=== PATIENT | female | born 1935 | race Caucasian/White ===

== ENCOUNTER 2022-09-10 10:51 | Outpatient (CLI) | payer MEDICARE, OTHER ==
[2022-09-10] MEDS ORDERED: Iopamidol 370 76% 100 ML VIAL ONE (14:33)
== END 2022-09-10 10:52 | disposition home or self-care (01) ==
LOC: NM 10:51
PROVIDERS: ATTEND Internal Medicine Hematology & Oncology
DX: C50.111 Malignant neoplasm of central portion of right female breast (principal); G95.89 Other specified diseases of spinal cord; I70.0 Atherosclerosis of aorta; N63.10 Unspecified lump in the right breast, unspecified quadrant; E07.89 Other specified disorders of thyroid; M79.9 Soft tissue disorder, unspecified; N28.89 Other specified disorders of kidney and ureter; I70.90 Unspecified atherosclerosis; K44.9 Diaphragmatic hernia without obstruction or gangrene; K57.30 Diverticulosis of large intestine without perforation or abscess without bleeding; S32.049A Unspecified fracture of fourth lumbar vertebra, initial encounter for closed fracture; D17.71 Benign lipomatous neoplasm of kidney; Z98.890 Other specified postprocedural states
CPT/HCPCS: 71260; 74177; 78306; A9503; Q9967

== ENCOUNTER 2022-11-08 10:22 | Outpatient (CLI) | payer MEDICARE | END 2022-11-08 10:23 | disposition home or self-care (01) | LOC: BICMAMMO 10:22 | PROVIDERS: ATTEND Internal Medicine Hematology & Oncology | DX: Z13.820 Encounter for screening for osteoporosis (principal); N95.9 Unspecified menopausal and perimenopausal disorder; C50.111 Malignant neoplasm of central portion of right female breast; M81.0 Age-related osteoporosis without current pathological fracture | CPT/HCPCS: 77080 ==

== ENCOUNTER 2023-09-19 22:15 | Inpatient (IN) | payer MEDICARE, OTHER ==
[~2023-09-19 22:15] MED LIST: Iopamidol-370 76% 500 ML MDV (1 ML CHARGE) ONE
[2023-09-19] MEDS ORDERED: Lisinopril 10 MG TAB ONE (23:13)
[2023-09-19] MEDS ORDERED: Ketorolac Tromethamine 30 MG/ML VIAL ONE (23:13)
[2023-09-19 23:46] LABS: #Monocytes 0.3 thou/uL (0.11-0.59); #Neutrophils 7.6 thou/uL (1.40-6.50); %Basophils 0.3 % (0.0-1.0); %Eosinophils 0.2 % (0.0-10.0); %Lymphocytes 12.3 % (21.0-51.0); %Monocytes 3.4 % (0.0-10.0); %Neutrophils 83.1 % (42.0-75.0); Hematocrit 36.6 % (36.0-47.0); Hemoglobin 12.8 g/dL (12.0-16.0); Mean Corpuscular Hemoglobin 35.6 pg (27.0-31.0); Mean Corpuscular Volume 101.7 fl (78.0-98.0); Mean Platelet Volume 8.6 fL (7.4-10.4); Platelet Count 222 10x3/uL (130-400); White Blood Cell (WBC) Count 9.1 10x3/uL (4.8-10.8)
[2023-09-20 00:09] LABS: ALT (SGPT) 17 U/L (8-55); AST (SGOT) 19 U/L (5-34); Albumin 4.1 g/dL (3.4-4.8); Alkaline Phosphatase 121 U/L (40-110); Anion Gap 15 mmol/L (10-20); BUN (Urea Nitrogen) 13 mg/dL (9.8-20.1); Bilirubin, Total 0.6 mg/dL (0.2-1.2); Calc. Creatinine Clearance 0 mL/min (70-130); Calcium 9.1 mg/dL (7.8-10.44); Carbon Dioxide 24 mmol/L (23-31); Chloride 95 mmol/L (98-107); Estimated GFR 67; Globulin 2.7 g/dL (2.4-3.5); Glucose 165 mg/dL (83-110); Lipase 9 U/L (8-78); Potassium 3.5 mmol/L (3.5-5.1); Protein, Total 6.8 g/dL (5.8-8.1); Sodium 130 mmol/L (136-145)
[2023-09-20 00:12] LABS: Troponin I Less than 0.010 ng/mL (< 0.028)
[2023-09-20] MEDS ORDERED: Ondansetron PF 4 MG/2 ML Vial IVP PRN (02:59)
[2023-09-20] MEDS ORDERED: Sodium Chloride 0.9% 1,000 ML IV SCH ×2 (03:00→08:57)
[2023-09-20 04:12] LABS: #Monocytes 0.4 thou/uL (0.11-0.59); #Neutrophils 5.6 thou/uL (1.40-6.50); %Basophils 0.4 % (0.0-1.0); %Eosinophils 0.1 % (0.0-10.0); %Lymphocytes 18.1 % (21.0-51.0); %Monocytes 5.9 % (0.0-10.0); %Neutrophils 75.1 % (42.0-75.0); Hematocrit 33.7 % (36.0-47.0); Hemoglobin 11.9 g/dL (12.0-16.0); Mean Corpuscular HGB CONC 35.3 g/dL (32.0-36.0); Mean Corpuscular Volume 101.8 fl (78.0-98.0); Mean Platelet Volume 8.7 fL (7.4-10.4); Platelet Count 191 10x3/uL (130-400); Red Blood Cell (RBC) Count 3.31 mill/uL (4.20-5.40); White Blood Cell (WBC) Count 7.5 10x3/uL (4.8-10.8)
[2023-09-20 04:33] LABS: Anion Gap 12 mmol/L (10-20); BUN (Urea Nitrogen) 12 mg/dL (9.8-20.1); Calc. Creatinine Clearance 0 mL/min (70-130); Calcium 8.9 mg/dL (7.8-10.44); Carbon Dioxide 25 mmol/L (23-31); Chloride 95 mmol/L (98-107); Estimated GFR 75; Glucose 119 mg/dL (83-110); Potassium 3.6 mmol/L (3.5-5.1); Sodium 128 mmol/L (136-145)
[2023-09-20 05:25] VITALS: BMI 17.4
[2023-09-20 08:46] LABS: Magnesium 1.8 mg/dL (1.6-2.6); Phosphorus 3.1 mg/dL (2.3-4.7)
[2023-09-20] MEDS ORDERED: Magnesium 2 GM/50 ML(in water) 2 GM in Premix 1 BAG IVPB SCH (09:00)
[2023-09-20] MEDS ORDERED: GASTROGRAFIN 30 ML BOT ONE (10:32)
[2023-09-20] MEDS ORDERED: MD-Gastroview 120 ML BOT ONE (10:32)
[2023-09-20] MEDS ORDERED: Labetalol HCl 100 MG/20 ML VIAL SLOW IVP PRN (11:02)
[2023-09-20] MEDS ORDERED: Acetaminophen 650 MG Suppository PR PRN (11:10)
[2023-09-20] MEDS ORDERED: Pantoprazole 40 MG VIAL IVP SCH (11:15)
[2023-09-20 11:54] LABS: Lactic Acid 0.9 mmol/L (0.5-2.2)
[2023-09-20 11:57] LABS: Anion Gap 13 mmol/L (10-20); BUN (Urea Nitrogen) 9 mg/dL (9.8-20.1); Calc. Creatinine Clearance 34 mL/min (70-130); Calcium 9.1 mg/dL (7.8-10.44); Carbon Dioxide 25 mmol/L (23-31); Chloride 95 mmol/L (98-107); Estimated GFR 74; Glucose 94 mg/dL (83-110); Potassium 3.7 mmol/L (3.5-5.1); Sodium 129 mmol/L (136-145)
[2023-09-20] MEDS: NS 0.9% w/ 20 MEQ KCL 1,000 ML/1,000 ML BAG IV SCH ×3 (16:04→18:13)
[2023-09-20 17:16] LABS: Anion Gap 12 mmol/L (10-20); BUN (Urea Nitrogen) 10 mg/dL (9.8-20.1); Calc. Creatinine Clearance 33 mL/min (70-130); Calcium 8.8 mg/dL (7.8-10.44); Carbon Dioxide 23 mmol/L (23-31); Chloride 103 mmol/L (98-107); Estimated GFR 71; Glucose 157 mg/dL (83-110); Potassium 3.2 mmol/L (3.5-5.1); Sodium 135 mmol/L (136-145)
[2023-09-20] MEDS ORDERED: Potassium Phosphate 15 MMOL in Sodium Chloride 0.9% 250 ML 250 ML IVPB SCH (17:30)
[2023-09-20] MEDS: Pantoprazole 40 MG VIAL IVP SCH (19:45)
[2023-09-21] MEDS: NS 0.9% w/ 20 MEQ KCL 1,000 ML/1,000 ML BAG IV SCH ×2 (02:53→08:44)
[2023-09-21 05:17] LABS: #Eosinphils 0.1 thou/uL (0.0-0.7); #Monocytes 0.4 thou/uL (0.11-0.59); #Neutrophils 3.3 thou/uL (1.40-6.50); %Basophils 0.7 % (0.0-1.0); %Eosinophils 1.4 % (0.0-10.0); %Lymphocytes 33.3 % (21.0-51.0); %Monocytes 6.3 % (0.0-10.0); Hematocrit 34.6 % (36.0-47.0); Mean Corpuscular HGB CONC 34.7 g/dL (32.0-36.0); Mean Corpuscular Hemoglobin 36.4 pg (27.0-31.0); Mean Corpuscular Volume 104.8 fl (78.0-98.0); Mean Platelet Volume 9.1 fL (7.4-10.4); Platelet Count 187 10x3/uL (130-400); RBC Distribution Width 12.7 % (11.5-14.5); White Blood Cell (WBC) Count 5.7 10x3/uL (4.8-10.8)
[2023-09-21 05:40] LABS: Phosphorus 3.4 mg/dL (2.3-4.7)
[2023-09-21 05:43] LABS: Anion Gap 11 mmol/L (10-20); BUN (Urea Nitrogen) 10 mg/dL (9.8-20.1); Calc. Creatinine Clearance 35 mL/min (70-130); Calcium 8.3 mg/dL (7.8-10.44); Carbon Dioxide 26 mmol/L (23-31); Chloride 104 mmol/L (98-107); Estimated GFR 75; Glucose 88 mg/dL (83-110); Magnesium 2.1 mg/dL (1.6-2.6); Potassium 3.4 mmol/L (3.5-5.1); Sodium 138 mmol/L (136-145)
[2023-09-21 07:30] VITALS: TEMP 98.2
[2023-09-21] MEDS ORDERED: Electrolyte Replacement Protocol 1 EACH FS SCH (07:30)
[2023-09-21] MEDS ORDERED: Potassium Chloride 40 MEQ in Premix 1 BAG IVPB SCH (08:00)
[2023-09-21] MEDS: Potassium Chloride 20 MEQ in Premix 1 BAG IVPB SCH ×2 (08:37→09:49)
[2023-09-21] MEDS: Pantoprazole 40 MG VIAL IVP SCH (08:39)
[2023-09-21] MEDS ORDERED: Lisinopril 20 MG TAB PO SCH (08:49)
[2023-09-21 11:56] VITALS: BP 178/92
== END 2023-09-21 13:40 | disposition home or self-care (01) | DRG 389 ==
LOC: ERS 22:15 → ERHOLD 09-20 02:36 → SURG A 09-20 07:37
PROVIDERS: ADMIT Internal Medicine; ATTEND Family Medicine
DX: K56.600 Partial intestinal obstruction, unspecified as to cause (principal); E87.1 Hypo-osmolality and hyponatremia; I10 Essential (primary) hypertension; E83.42 Hypomagnesemia; Z91.013 Allergy to seafood; Z91.018 Allergy to other foods; Z88.0 Allergy status to penicillin; Z88.8 Allergy status to other drugs, medicaments and biological substances; Z79.899 Other long term (current) drug therapy; Z90.89 Acquired absence of other organs; Z90.49 Acquired absence of other specified parts of digestive tract; Z90.710 Acquired absence of both cervix and uterus; Z85.3 Personal history of malignant neoplasm of breast
CPT/HCPCS: 36415; 71045; 74018; 74177; 74250; 80048; 80053; 83605; 83690; 83735; 84100; 84484; 85025; 93005; 94760; 96361; 96374; C9113; J1885; J3475; J3480; J7050; Q9963; Q9967

== ENCOUNTER 2023-12-12 11:07 | Outpatient (CLI) | payer MEDICARE, OTHER ==
[2023-12-12 13:52] LABS: #Monocytes 0.6 10x3/uL (0.0-1.1); #Neutrophils 6.6 10x3/uL (1.5-8.4); %Basophils 0.2 % (0.0-2.0); %Eosinophils 0.4 % (0.0-6.0); %Lymphocytes 21.5 % (18.0-47.0); %Monocytes 6.8 % (0.0-10.0); %Neutrophils 70.7 % (40.0-75.0); Hematocrit 41.3 % (34.9-44.5); Hemoglobin 13.9 g/dL (12.0-15.5); Mean Corpuscular HGB CONC 33.7 g/dL (32.0-36.0); Mean Corpuscular Hemoglobin 33.3 pg (27.0-33.0); Mean Platelet Volume 9.8 fl (7.4-10.4); Platelet Count 221 10x3/uL (150-450); RBC Distribution Width 11.4 % (11.5-14.5); Red Blood Cell (RBC) Count 4.17 10x6/uL (3.90-5.03); White Blood Cell (WBC) Count 9.3 10x3/uL (3.5-10.5)
[2023-12-12 14:04] LABS: Anion Gap 17 mmol/L (10-20); BUN (Urea Nitrogen) 8 mg/dL (9.8-20.1); Calc. Creatinine Clearance 0 mL/min (70-130); Calcium 9.4 mg/dL (7.8-10.44); Carbon Dioxide 26 mmol/L (23-31); Chloride 99 mmol/L (98-107); Estimated GFR 75; Glucose 97 mg/dL (83-110); Potassium 3.9 mmol/L (3.5-5.1); Sodium 138 mmol/L (136-145)
== END 2023-12-12 11:08 | disposition home or self-care (01) ==
LOC: LABBT 11:07
PROVIDERS: ATTEND Specialist
DX: Z01.818 Encounter for other preprocedural examination (principal); C50.911 Malignant neoplasm of unspecified site of right female breast
CPT/HCPCS: 71046; 80048; 85025; 93005; 93010

== ENCOUNTER 2023-12-24 10:04 | Observation (INO) | payer MEDICARE, OTHER ==
[2023-12-24] MEDS ORDERED: Acetaminophen 500 MG TAB ONE (10:28)
[2023-12-24] MEDS ORDERED: Ketorolac Tromethamine 30 MG (1 mL) VIAL ONE (10:28)
[2023-12-24] MEDS ORDERED: EPINEPHrine 1 MG/ML VIAL ONE (12:34)
[2023-12-24] MEDS ORDERED: PROPOFOL 20 ML ONE (12:34)
[2023-12-24] MEDS ORDERED: Bupivacaine 0.25% HCL 30 ML VIAL ONE (12:34)
[2023-12-24] MEDS ORDERED: Lidocaine 1% PF 5 ML VIAL ONE (12:35)
[2023-12-24] MEDS ORDERED: fentaNYL 50 mcg/mL 1 mL Vial ONE ×2 (12:35→13:37)
[2023-12-24] MEDS ORDERED: CEFAZOLIN 2 GM VIAL ONE (12:45)
[2023-12-24] MEDS ORDERED: Sodium Chloride 0.9% 100 ML ONE (12:46)
[2023-12-24] MEDS ORDERED: ePHEDrine Sulfate 50 MG/10 ML VIAL ONE (13:14)
[2023-12-24] MEDS ORDERED: Ondansetron PF 4 MG/2 ML Vial ONE (14:22)
[2023-12-24] MEDS ORDERED: Promethazine HCl 25 MG/ML VIAL IM PRN ×2 (14:48→14:59)
[2023-12-24] MEDS ORDERED: Ondansetron HCl/PF 4 MG/2 ML Vial IVP PRN (14:48)
[2023-12-24] MEDS ORDERED: Ondansetron PF 4 MG/2 ML Vial IVP PRN (14:59)
[2023-12-24] MEDS ORDERED: Glucagon 1 MG/ML KIT IM PRN (14:59)
[2023-12-24] MEDS ORDERED: Polyethylene Glycol 3350 17 GM Packet PO PRN (14:59)
[2023-12-24] MEDS ORDERED: Dextrose 50% Abboject 50 ML SYRINGE SLOW IVP PRN (14:59)
[2023-12-24] MEDS ORDERED: Ipratropium/Albuterol 3 ML NEB NEB PRN (14:59)
[2023-12-24] MEDS ORDERED: Morphine 2 MG/ML VIAL SLOW IVP PRN (14:59)
[2023-12-24] MEDS ORDERED: hydrALAZINE 20 MG/ML VIAL ONE (15:59)
[2023-12-24] MEDS: hydrALAZINE 20 MG/ML VIAL SLOW IVP PRN (16:02)
[2023-12-24] MEDS: HYDROcodone/Acetaminophen 5/325 mg Tablet PO PRN (21:23)
[2023-12-24] MEDS: Lisinopril 20 MG TAB PO SCH (21:23)
[2023-12-24] MEDS: Letrozole 2.5 MG TAB PO SCH (21:23)
[2023-12-24] MEDS: Famotidine 20 MG TAB PO SCH (21:23)
[2023-12-24] MEDS: D5 1/2 NS w/20 mEq KCL 1,000 ML IV SCH (23:20)
[2023-12-25 04:40] LABS: #Neutrophils 7.2 thou/uL (1.40-6.50); %Basophils 0.3 % (0.0-1.0); %Monocytes 9.7 % (0.0-10.0); %Neutrophils 73.7 % (42.0-75.0); Hemoglobin 11.6 g/dL (12.0-16.0); Mean Corpuscular HGB CONC 33.1 g/dL (32.0-36.0); Mean Corpuscular Hemoglobin 33.3 pg (27.0-31.0); Mean Corpuscular Volume 100.6 fl (78.0-98.0); Mean Platelet Volume 8.9 fL (7.4-10.4); Platelet Count 249 10x3/uL (130-400); RBC Distribution Width 11.7 % (11.5-14.5); Red Blood Cell (RBC) Count 3.48 mill/uL (4.20-5.40); White Blood Cell (WBC) Count 9.8 10x3/uL (4.8-10.8)
[2023-12-25 05:08] LABS: Anion Gap 13 mmol/L (10-20); BUN (Urea Nitrogen) 13 mg/dL (9.8-20.1); Calc. Creatinine Clearance 34 mL/min (70-130); Calcium 8.8 mg/dL (7.8-10.44); Carbon Dioxide 24 mmol/L (23-31); Chloride 99 mmol/L (98-107); Estimated GFR 79; Glucose 114 mg/dL (83-110); Potassium 3.5 mmol/L (3.5-5.1); Sodium 132 mmol/L (136-145)
[2023-12-25 08:33] VITALS: BMI 17.4
[2023-12-26] MEDS: Acetaminophen 500 MG TAB PO PRN (05:43)
[2023-12-26] MEDS: Famotidine 20 MG TAB PO SCH (09:22)
[2023-12-26 11:38] VITALS: BP 161/85; TEMP 97.9
== END 2023-12-26 16:40 | disposition home or self-care (01) ==
LOC: SDC 10:04 → SJJU 16:51
PROVIDERS: ADMIT Specialist; ATTEND Specialist
PROC: 0HTT0ZZ Resection of Right Breast, Open Approach (ICD-10-PCS; principal; 2023-12-24)
PROC: 0HRT07Z Replacement of Right Breast with Autologous Tissue Substitute, Open Approach (ICD-10-PCS; 2023-12-24)
DX: C50.511 Malignant neoplasm of lower-outer quadrant of right female breast (principal); I48.91 Unspecified atrial fibrillation; I11.0 Hypertensive heart disease with heart failure; Z90.49 Acquired absence of other specified parts of digestive tract; Z17.0 Estrogen receptor positive status [ER+]; Z98.890 Other specified postprocedural states; Z90.710 Acquired absence of both cervix and uterus; Z98.41 Cataract extraction status, right eye; Z98.42 Cataract extraction status, left eye; Z87.891 Personal history of nicotine dependence; Z91.048 Other nonmedicinal substance allergy status; Z88.2 Allergy status to sulfonamides
CPT/HCPCS: 19303; 80048; 85025; J0171; J0360; J3010; 88309; J0665; J1885; J2405; J2704; J3490